=== PATIENT | male | born 1985 | race Hispanic/Latino ===

== ENCOUNTER 2021-05-13 00:35 | Emergency (ER) | payer OTHER ==
[~2021-05-13] VITALS: Ht 177.8 cm; Wt 99.8 kg
[2021-05-13 00:57] VITALS: BP 137/89
== END 2021-05-13 02:46 | disposition left against medical advice (07) ==
LOC: EDH 00:35
DX: K08.89 Other specified disorders of teeth and supporting structures (principal); Z53.21 Procedure and treatment not carried out due to patient leaving prior to being seen by health care provider